=== PATIENT | male | born 1960 | race Hispanic/Latino ===

== ENCOUNTER 2018-07-02 15:45 | Emergency (ER) | payer OTHER | END 2018-07-02 16:23 | disposition home or self-care (01) | LOC: EDBD 15:45 → EDH 15:45 | DX: S49.81XA Other specified injuries of right shoulder and upper arm, initial encounter (principal); E07.9 Disorder of thyroid, unspecified; W01.0XXA Fall on same level from slipping, tripping and stumbling without subsequent striking against object, initial encounter; Y93.89 Activity, other specified; Y92.098 Other place in other non-institutional residence as the place of occurrence of the external cause; Y99.8 Other external cause status | CPT/HCPCS: 73030 ==